=== PATIENT | male | born 1950 | race Caucasian/White ===

== ENCOUNTER 2016-11-24 08:33 | Day surgery (SDC) ==
[2016-11-24] MEDS ORDERED: LIDOCAINE 1% 20 ML MDV ONE (09:50)
[2016-11-24] MEDS ORDERED: LIDOCAINE 1% 20 ML MDV ID ONE (09:50)
[2016-11-24] MEDS ORDERED: DIPRIVAN 20 ML VIAL IVP ONE (10:45)
[2016-11-24] MEDS ORDERED: VERSED ONE (10:45)
[2016-11-24 11:58] VITALS: BP 116/56; TEMP 98
--- NOTE | 2016-11-24 14:28 | OP ---
PROCEDURE: COLONOSCOPY TO THE CECUM WITH SNARE POLYPECTOMY. ENDOSCOPIST: Swapna ANTHONY M.D. INDICATION: HISTORY OF POLYPS INSTRUMENT: [facility] MEDICATION: PER ANESTHESIA. PROCEDURE: The patient was positioned for colonoscopy. The digital rectal exam was negative. The colonoscope was inserted through the anus and advanced to the cecum. The cecum was identified using the ileocecal valve and the appendiceal orifice as landmarks. The scope was slowly withdrawn through an adequately prepped colon. Careful inspection was made of each colonic segment as the scope was withdrawn in a circumferential fashion. Care taken to inspect the proximal side of the ileocecal valve, haustral folds, flexures and rectal valves. A small polyp in the transverse colon is removed using cold snare polypectomy. Scattered diverticula noted. Retroflex exam was otherwise negative. Withdrawal time 8 minutes and 42 seconds. PLAN: 1. Repeat exam in 5 years. CC: Dr. Bruce NUÑEZ
== END 2016-11-24 12:00 | disposition home or self-care (01) ==
LOC: SURG 08:33
PROVIDERS: ATTEND Internal Medicine Gastroenterology
DX: Z86.010 Personal history of colon polyps (principal); D12.3 Benign neoplasm of transverse colon; K57.30 Diverticulosis of large intestine without perforation or abscess without bleeding
CPT/HCPCS: 87339

== ENCOUNTER 2017-01-25 14:01 | Emergency (ER) ==
[2017-01-25 14:06] VITALS: BP 163/84; TEMP 982; BMI 25.3
[2017-01-25] MEDS ORDERED: TENIVAC IM ONE (14:32)
[2017-01-25] MEDS ORDERED: LIDOCAINE 1 % AMP 5 ML (SUTURES) SUBCUT STA (14:32)
--- NOTE | 2017-01-25 15:59 | CT ---
EXAM: CT scan of the head without contrast HISTORY: Left parietal, head injury TECHNIQUE: Imaging of the head was performed without contrast. 5 mm thin axial images and coronal and sagittal images were provided for interpretation. FINDINGS: The bryson-white interface appears normal. No acute hemorrhages are seen. There is no mas s effect. Basal cisterns are patent. The paranasal sinuses and mastoid air cells are clear. The c alvarium and extracranial soft tissues are normal. IMPRESSION: No acute traumatic abnormalities are seen.
--- NOTE | 2017-01-25 16:19 | ED.PDOC ---
General ED Provider: Dr. HOUSTON FONSECA JR Chief Complaint: Head Laceration Stated Complaint: patient states he was going up a ladder and didn't see the support for the garage door. states it did not knock him out. c/o headache.[End ] states able to hear throughout thehouse Time Seen by Physician: 16:17 Mode of Arrival: Walk-In Information Source: Patient Exam Limitations: No limitations Primary Care Provider: DORA MUÑOZ Nursing and Triage Documentation Reviewed and Agree: No Review of Systems - Review Of Systems Constitutional: Reports: No symptoms Eyes: Reports: No symptoms Ears, Nose, Mouth, Throat: Reports: No symptoms Respiratory: Reports: No symptoms Cardiac: Reports: No symptoms GI: Reports: No symptoms : Reports: No symptoms Musculoskeletal: Reports: No symptoms Skin: Reports: Lesions Neurological: Reports: No symptoms Hematologic/Lymphatic: Reports: No symptoms All Other Systems: Other Past Medical History - Past Medical History Previously Healthy: Yes Endocrine: Reports: Hypothyroid Cardiovascular: Reports: None Respiratory: Reports: None Hematological: Reports: None Gastrointestinal: Reports: None Genitourinary: Reports: None Neuro/Psych: Reports: None Musculoskeletal: Reports: None Cancer: Reports: None - Surgical History General Surgical History: Reports: Cholecystectomy - Family History Family History: Reports: Unknown - Social History Smoking Status: Former smoker Hx Substance Use: No Alcohol Screening: Occasionally - Immunizations Tetanus Shot up to Date: No Physical Exam - Physical Exam Appearance: Well-appearing Pain Distress: Mild Eyes: ADITI, EOMI, Conjunctiva clear ENT: Ears normal, Nose normal, Oropharynx normal Neck: Supple Respiratory: Airway patent, Breath sounds clear, Breath sounds equal, Respirations nonlabored Cardiovascular: RRR, Pulses normal, No rub, No murmur GI/: Soft, Nontender, No masses, Bowel sounds normal, No Organomegaly Musculoskeletal: Normal strength, ROM intact, No edema, No calf tenderness Skin: Warm, Dry, Normal color (4cm laceration left frontal apex) Neurological: Sensation intact, Motor intact, Reflexes intact, Cranial nerves intact, Alert, Oriented Procedures - Laceration/Wound Repair No standard instances Wound Description: Flap Wound Length (cm): 4 Wound Explored: Clean Wound Irrigated: Yes Wound Prep: Saline, Hibiclens Anesthesia: Lidocaine Wound Repaired With: Sutures Suture Size and Type: 4-0 nylon Number of Sutures: 6 Layer Closure?: No Critical Care Note - Critical Care Note Total Time (mins): 0 Course - Course Orders, Labs, Meds: Orders Category Date Time Status Lidocaine HCl/Pf [Lidocaine 1 % Amp 5 ml (Sutures)] MEDS 01/25/17 14:32 Discontinued 5 ml SUBCUT ONCE STA Tetanus and Diphtheria Tox/Pf [Tenivac] MEDS 01/25/17 14:32 Discontinued 0.5 ml IM .ONCE ONE CT HEAD W/O CONTRAST Stat RADS 01/25/17 15:28 Completed Medications Discontinued Medications Generic Name Dose Route Start Last Admin Trade Name Alonso PRN Reason Stop Dose Admin Lidocaine HCl 5 ml 01/25/17 14:32 01/25/17 15:45 Lidocaine 1 % Amp 5 Ml (Sutures) SUBCUT 01/25/17 14:33 5 ml ONCE STA Administration Tetanus/Diphtheria Toxoids Adsorbed 0.5 ml 01/25/17 14:32 01/25/17 14:40 Tenivac IM 01/25/17 14:33 0.5 ml .ONCE ONE Administration Vital Signs: Temp Pulse Resp BP Pulse Ox 01/25/17 14:01 982 F H 60 16 163/84 H 97 Departure - Departure Time of Disposition: 16:18 Disposition: HOME SELF-CARE Discharge Problem: Injury of head, Laceration of scalp Instructions: Head Injury (ED), Laceration (ED) Condition: Good Pt referred to PMD for follow-up: Yes Additional Instructions: return if light headed headache or nausea or vomiting recheckPMD one week check every 1-2 hours for 24 hours may allow to sleep if sleeping normally if concerned may awaken and check mental status tylenol for pain skip one day aspirin sutures out in 6-7 days Allergies/Adverse Reactions: Allergies No Known Allergies Allergy (Unverified 01/25/17 14:04) Home Medications: Ambulatory Orders Aspirin [Ecotrin] 81 mg PO DAILY 11/24/16 Krill/Om-3/Dha/Epa/Phospho/Ast [Megared [place]-3 Krill Oil Sfgl] 1 each PO DAILY 11/24/16 L.acidoph,Paracasei, B.lactis [Probiotic] 1 each PO DAILY 11/24/16 Levothyroxine Sodium [Synthroid] 25 mcg PO QDAC 11/24/16 Multivitamin [Multi-Vitamin Daily] 1 each PO DAILY 11/24/16
== END 2017-01-25 16:26 | disposition home or self-care (01) ==
LOC: ED 14:01
DX: S01.01XA Laceration without foreign body of scalp, initial encounter (principal); S09.90XA Unspecified injury of head, initial encounter; W22.09XA Striking against other stationary object, initial encounter
CPT/HCPCS: 90471; 99283

== ENCOUNTER 2018-12-01 08:33 | Outpatient (POV) | END 2018-12-01 17:00 | LOC: OUTPT 08:33 | PROVIDERS: ATTEND Otolaryngology | DX: H91.90 Unspecified hearing loss, unspecified ear (principal) ==